=== PATIENT | male | born 1965 | race Caucasian/White ===

== ENCOUNTER 2017-03-18 20:33 | Emergency (ER) | payer OTHER ==
[2017-03-18 20:41] VITALS: BP 138/79; PULSE 70; RESP 16; TEMP 98.7; O2SAT 97
[2017-03-18] MEDS ORDERED: IOHEXOL 350 MG/ML 10 ML VIAL (for RAD DIAG) IVCONTRAST ONE (21:37)
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
[2017-03-18 21:59] LABS: AUTOMATED NEUTROPHIL # 6.4 TH/MM3 (1.8-7.7); BASOPHIL % 0.4 % (0.0-2.0); EOSINOPHIL % 0.4 % (0.0-4.0); HEMATOCRIT 41.5 % (39.0-51.0); HEMOGLOBIN 14.1 GM/DL (13.0-17.0); LYMPH % 20.2 % (9.0-44.0); LYMPHOCYTE # 1.8 TH/MM3 (1.0-4.8); MEAN CORPUSCULAR HEMOGLOBIN 29.3 PG (27.0-34.0); MEAN CORPUSCULAR HGB CONC 34.1 % (32.0-36.0); MEAN PLATELET VOLUME 8.4 FL (7.0-11.0); MONO % 5.9 % (0.0-8.0); MONOCYTE # 0.5 TH/MM3 (0-0.9); NEUT % 73.1 % (16.0-70.0); PLATELET COUNT 261 TH/MM3 (150-450); RED BLOOD COUNT 4.83 MIL/MM3 (4.50-5.90); RED CELL DISTRIBUTION WIDTH 13.1 % (11.6-17.2); WHITE BLOOD COUNT 8.7 TH/MM3 (4.0-11.0)
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
[2017-03-18 22:04] LABS: PROTHROMBIN TIME - PATIENT 10.2 SEC (9.8-11.6)
[2017-03-18] MEDS ORDERED: DICL75TA PO (22:06)
[2017-03-18] MEDS ORDERED: ROBA500T PO (22:06)
[2017-03-18 22:19] LABS: BICARBONATE 28.7 MEQ/L (21.0-32.0); CALCIUM 8.4 MG/DL (8.5-10.1); CREATININE 1.05 MG/DL (0.60-1.30)
[2017-03-18 22:20] VITALS: BP 138/80
== END 2017-03-18 22:25 | disposition home or self-care (01) ==
LOC: NEPE 20:33
DX: S20.212A Contusion of left front wall of thorax, initial encounter (principal); S13.4XXA Sprain of ligaments of cervical spine, initial encounter; I10 Essential (primary) hypertension; V43.62XA Car passenger injured in collision with other type car in traffic accident, initial encounter
CPT/HCPCS: 70450; 71045; 71260; 72125; 73564; 80048; 85025; 85610; 85730; 99285; Q9967